=== PATIENT | male | born 1955 | race Caucasian/White ===

== ENCOUNTER → 2020-06-21 | Outpatient (CLI) | payer BC ==
[~2020-06-21] MED LIST: BUPR150T11 PO; glaucoma drop
== END ==
LOC: LAB 10:00
PROVIDERS: ATTEND Nurse Anesthetist, Certified Registered
DX: Z01.812 Encounter for preprocedural laboratory examination (principal); K64.8 Other hemorrhoids; Z20.822 Contact with and (suspected) exposure to COVID-19
CPT/HCPCS: U0003

== ENCOUNTER → 2020-06-25 | Day surgery (SDC) | payer BC ==
[~2020-06-25] MED LIST changes: +ACETAMINOPHEN 500 MG TABLET PO ONE; +BUPIVACAINE-EPI 0.25%-1:200000 MPF 30 ML VIAL. ONE; +DEXAMETHASONE SOD PHOS 4 MG/ML VIAL. ONE; +FAMOTIDINE 20 MG/2 ML VIAL ONE; +IPRATRPIUM/ALBUTEROL 0.5/2.5MG 3 ML NEBU. NEB PRN; +IV RINGERS SOLUTION,LACTATED 1,000 ML IV SCH; +LIDOCAINE 2% PF 5 ML VIAL. ONE; +MIDAZOLAM HCL PF 2 MG/2 ML VIAL. IV ONE; +NEOMY/BACITR/POLYMYXIN OINT PACKET. TP ONE; +ONDANSETRON PF 4 MG/2 ML VIAL. IV PRN; +ONDANSETRON PF 4 MG/2 ML VIAL. ONE; +PROPOFOL 10,000 MCG/ML (20ML) VIAL IV ONE; +ceFAZolin SODIUM 2 GM in IV DEXTROSE 5% 50 ML IV ONE
--- NOTE | 2020-06-25 12:27 | PDOC4 ---
Operative Report DATE June 252020 at 1224 Preop Diagnosis Internal/external hemorrhoids Post-op Diagnosis Same Operation Performed Hemorrhoidectomy internal and external hemorrhoids. Patient is a 64-year-old gentleman with complaint of rectal bleeding he had a colonoscopy about 2 years ago which was normal other than internal hemorrhoids. He also has a large external hemorrhoid that is been bothering him. Procedure of hemorrhoidectomy was explained to the patient in detail risk-benefit were also discussed including bleeding infection alternatives to this procedure also discussed with the patient who seemed to understand and gave both verbal and written consent to have the procedure performed. Patient was taken to the operating room placed the supine position general anesthesia was initiated once patient was sleeping abated placed in low lithotomy positioning. His perineum was prepped and draped usual sterile fashion was Betadine scrub and solution. Area around the external and internal hemorrhoids were injected with quarter percent Marcaine with epinephrine the external hemorrhoid was grasped with Allis clamp and excised with harmonic scalpel. This was at the 12 o'clock position. At the 6 o'clock position was the internal hemorrhoids these were also grasped with the Allis clamp and excised with the harmonic scalpel. Wound was then dressed with antibiotic ointment ABD and mesh pants. Patient was awakened and extubated operating room taken to recovery in stable condition all sponge instrument needle counts listed as correct estimated blood loss 10 mL Surgeon Madhu ANESTHESIA PROPOSED: GENERAL Blood Loss 10 mL Specimen Internal/external hemorrhoids Complications None WONG ANSARI MD Jun 25, 2020 12:27
--- NOTE | 2020-06-25 12:29 | DISCH ---
DISCHARGE INSTRUCTIONS-DC Condition on Discharge Condition on Discharge: Stable Activity after Discharge Activity Instructions for Disc: Avoid exertion Diet after Discharge Diet after Discharge: Regular Wound/Incision Care Other wound/incision instructi: Saskia shower in 24 hours Contacting the DRCalvin after DC Call your doctor for: If your condition worsens Follow-Up Follow up with: Dr. Ansari in 2 weeks WONG ANSARI MD Jun 25, 2020 12:29
[2020-06-25 12:56] VITALS: BP 156/99
--- NOTE | 2020-06-28 18:07 | PATHOLOGY ---
[facility] Accession Number: [id number] . 01 Material submitted: . hemorrhoids - EXTERNAL AND INTERNAL HEMORROID. Modifiers: external, INTERNAL . 01 Clinical history: . HEMORRHOIDECTOMY . 02 Diagnosis: Segments of skin and anorectal mucosa and submucosal tissue, hemorrhoidectomy: - Hemorrhoids. - Chronic inflammation of anal skin. (JPM:fine patcher; 06/28/2020) R 06/28/2020 1604 Local . 02 Comment: There is no evidence of malignancy. (JPM:merelne; 06/28/2020) . 02 Electronically signed: . John Bello MD, Pathologist NPI- [id number] . 01 Gross description: . The specimen is received in formalin, labeled "Benjamin Julio César, external and internal hemorrhoids". Received are two segments of epithelial covered tissue measuring 2.2 x 0.9 x 0.5 and 2.8 x 1.3 x 0.7 cm in greatest dimensions. Sectioning reveals mckeon-gamez to moderately hemorrhagic cut surfaces. The specimen is submitted representatively in cassette A1. (CAA; 06/27/2020) QA/QA 06/27/2020 1843 Local . 02 Pathologist provided ICD-10: K64.9, K62.89 . 02 CPT . 428305 Specimen Comment: A courtesy copy of this report has been sent to [phone] Specimen Comment: Report sent to Performed at: 01 [facility] [address], [place] [id number] MD Cesar William MD Phone: [phone] Performed at: 02 [facility] [address] [place], [place] [id number] MD John Bello MD Phone: [phone]
== END | disposition home or self-care (01) ==
LOC: SURG 10:24
PROVIDERS: ATTEND Surgery
DX: K64.8 Other hemorrhoids (principal); K62.89 Other specified diseases of anus and rectum; K64.4 Residual hemorrhoidal skin tags; Z91.041 Radiographic dye allergy status; Z91.013 Allergy to seafood; Z79.899 Other long term (current) drug therapy
CPT/HCPCS: 46255; J0696; J1100; J2001; J2405; J2704; J3010; J3490; J7120

== ENCOUNTER 2020-11-04 06:54 | Emergency (ER) | payer BC ==
[~2020-11-04] VITALS: Ht 182.9 cm; Wt 84.0 kg
[~2020-11-04 06:54] MED LIST changes: -ACETAMINOPHEN 500 MG TABLET PO ONE; -BUPIVACAINE-EPI 0.25%-1:200000 MPF 30 ML VIAL. ONE; -DEXAMETHASONE SOD PHOS 4 MG/ML VIAL. ONE; -FAMOTIDINE 20 MG/2 ML VIAL ONE; -IPRATRPIUM/ALBUTEROL 0.5/2.5MG 3 ML NEBU. NEB PRN; -IV RINGERS SOLUTION,LACTATED 1,000 ML IV SCH; -LIDOCAINE 2% PF 5 ML VIAL. ONE; -MIDAZOLAM HCL PF 2 MG/2 ML VIAL. IV ONE; -NEOMY/BACITR/POLYMYXIN OINT PACKET. TP ONE; -ONDANSETRON PF 4 MG/2 ML VIAL. IV PRN; -ONDANSETRON PF 4 MG/2 ML VIAL. ONE; -PROPOFOL 10,000 MCG/ML (20ML) VIAL IV ONE; -ceFAZolin SODIUM 2 GM in IV DEXTROSE 5% 50 ML IV ONE
--- NOTE | 2020-11-04 07:58 | PHYS DOC ---
Past History Past Medical History: Kidney Stones Past Medical History Prostate cancer, kidney stones Past Surgical History Prostatectomy Additional Smoking Information: Cigars Alcohol Use: None General Adult EDM: Chief Complaint: ABDOMINAL PAIN HPI: HPI: Patient is a 65 year old male with past medical history of prostate cancer s/p prostatectomy, and kidney stones who presents with right-sided flank and groin pain. Pain initially started on Wednesday, and had a 1 hour episode that had resolved until this morning. Pain started again at 5 AM. Associated with naus ea dry heaving. He took 2.5 mg of hydrocodone at home and pain is now improving. Pain started in the right lower quadrant/groin, but now is more centered in the right flank. It is sharp. Comes in waves. Feels similar to his previous kidney stone episodes. Has had an episode of darker urine, but has not noted wilfred blood. No dysuria, fever, or chills. Review of Systems: Review of Systems: Constitutional: Denies fever or chills Eyes: Denies change in visual acuity HENT: Denies nasal congestion or sore throat Respiratory: Denies cough or shortness of breath Cardiovascular: Denies chest pain or edema GI: + RLQ pain, nausea, vomiting. no bloody stools or diarrhea : + Right flank pain. Denies dysuria Musculoskeletal: Denies back pain or joint pain Integument: Denies rash Neurologic: Denies headache, focal weakness or sensory changes Endocrine: Denies polyuria or polydipsia Lymphatic: Denies swollen glands Psychiatric: Denies depression or anxiety Family History: Family History: No pertinent family history Allergies: Allergies: Allergies Coded Allergies Type Severity Reaction Last Updated Verified Iodinated Contrast Media Allergy Intermediate agitation 06/25/20 Yes shellfish derived Allergy Unknown 06/25/20 Yes Physical Exam: PE: Constitutional: Appears uncomfortable, but not in distress. [] HENT: Normocephalic, atraumatic, bilateral external ears normal, oropharynx moist, no oral exudates, nose normal. [] Eyes: PERRLA, EOMI, conjunctiva normal, no discharge. [] Neck: Normal range of motion, no tenderness, supple, no stridor. [] Cardiovascular:Heart rate regular rhythm, no murmur [] Lungs & Thorax: Bilateral breath sounds clear to auscultation [] Abdomen: + Mild right lower quadrant tenderness to palpation. Bowel sounds normal, soft, no masses, no pulsatile masses. [] Skin: Warm, dry, no erythema, no rash. [] Back: No tenderness, no CVA tenderness. [] Extremities: No tenderness, no cyanosis, no clubbing, ROM intact, no edema. [] Neurologic: Alert and oriented X 3, normal motor function, normal sensory function, no focal deficits noted. [] Psychologic: Affect normal, judgement normal, mood normal. [] Current Patient Data: Vital Signs: Vital Signs Date Time Temp Pulse Resp B/P (MAP) Pulse Ox O2 Delivery O2 Flow Rate FiO2 11/04/20 07:01 98.0 68 16 156/93 99 Room Air EKG: EKG: [] Radiology/Procedures: Radiology/Procedures: [][address] [id number] IMAGING REPORT Signed PATIENT: ONI FONTANEZ ACCOUNT: [id number] : 1955 LOCATION: ER AGE: 65 SEX: M EXAM STATUS: REG ER ORD. PHYSICIAN: ROD CONTRERAS MD REASON: RLQ pain, R flank pain, hx kidney stones PROCEDURE: CT ABDOMEN PELVIS WO CONTRAST CT ABDOMEN+PELVIS WO INDICATION: RLQ pain, R flank pain, hx kidney stones EXAM: Noncontrast CT of the abdomen and pelvis. Coronal and sagittal reformatted images were performed. PQRS compliance statement: One or more of the following individualized dose reduction techniques were utilized for this examination: 1. Automated exposure control 2. Adjustment of the mA and/or kV according to patient size 3. Use of iterative reconstruction technique COMPARISON: 03/27/2005 FINDINGS: No free air, free fluid, or fluid collection. Lower chest: The visualized lower lungs are aerated. No pleural or pericardial effusion. ABDOMEN: Liver: The noncontrast liver is homogeneous in attenuation. Gallbladder and biliary: Normal gallbladder without radiopaque stone. Normal caliber bile ducts. Spleen: Normal spleen. Pancreas: The noncontrast pancreas is homogeneous in attenuation without peripancreatic inflammatory changes. Adrenal glands: Normal adrenal glands. Kidneys and ureters: Mild right hydroureteronephrosis with a 5 x 4 mm calculus in the proximal ureter. Several nonobstructive left renal calculi measuring up to 4 mm. 2 incompletely characterized left renal hypodensities, largest measuring 1.6 cm. GI tract: The stomach is decompressed and poorly evaluated. Normal caliber small bowel and colon. Normal appendix. Vascular structures: Normal caliber abdominal aorta. Mild aortoiliac atherosclerotic disease. Lymph nodes: No lymphadenopathy in the abdomen or pelvis. PELVIS: Genitourinary system: Normal bladder. SKELETAL STRUCTURES AND SOFT TISSUES: 9 mm anterolisthesis at L5-S1 due to bilateral L5 pars defects. Degenerative changes of the spine. IMPRESSION: 1. Mild right hydroureteronephrosis with a 5 x 4 mm calculus in the proximal ureter. 2. Several nonobstructive left renal calculi measuring up to 4 mm. 3. Two left renal hypodensities measuring up to 1.6 cm, incompletely characterized but possibly cysts. Consider renal ultrasound for better evalua tion. Electronically signed by: Hilton Peña MD (11/04/2020 9:39 AM) [id number] DICTATED AND SIGNED BY: HILTON PEÑA MD DATE: 11/04/2033 CC: ROD CONTRERAS MD; MIKE DUKES ~MTH0 0 Heart Score: C/O Chest Pain: N/A Risk Factors: Risk Factors: DM, Current or recent (<one month) smoker, HTN, HLP, family history of CAD, obesity. Risk Scores: Score 0 - 3: 2.5% MACE over next 6 weeks - Discharge Home Score 4 - 6: 20.3% MACE over next 6 weeks - Admit for Clinical Observation Score 7 - 10: 72.7% MACE over next 6 weeks - Early Invasive Strategies Course & Med Decision Making: Course & Med Decision Making Pertinent Labs and Imaging studies reviewed. (See chart for details) Patient is a 65-year-old man with history of previous episodes of kidney stones, prostate cancer s/p prostatectomy who presents with right groin pain radiating to his right flank. Reminiscent of previous kidney stone pain. On arrival is afebrile, hemodynamically stable. Appears uncomfortable, but not in distress on examination. History is certainly concerning for recurrent kidney stones, but also consider other intra-abdominal process such as appendicitis. Will check labs including CBC, CMP, UA. Will treat with Tylenol and ketorolac. If labs and urine are consistent with kidney stone, we may defer imaging. If there is some diagnostic uncertainty, may pursue CT abdomen/pelvis for further investigation. 0758 UA with large amount of red blood cells consistent with kidney stone. No evidence of infected kidney stone by urine, but white count was slightly elevated. Creatinine was okay. We did end up getting a CT scan which showed hydroureter on the right concerning for a passed kidney stone. He is feeling much improved at this time. Feel that he is safe for discharge with urology follow-up. He does have urology follow-up already due to his history of prostate cancer. Return precautions discussed. 1006 Dragon Disclaimer: Dragon Disclaimer: This electronic medical record was generated, in whole or in part, using a voice recognition dictation system. Departure Departure: Impression: Primary Impression: Right kidney stone Disposition: HOME / SELF CARE / HOMELESS Condition: STABLE Referrals: MIKE DUKES (PCP) Please follow-up with your PCP Patient Instructions: Kidney Stones Additional Instructions: Please schedule follow-up appointment with your urologist. ROD CONTRERAS MD Nov 04, 2020 07:58
[2020-11-04] MEDS ORDERED: KETOROLAC 15 MG/ML VIAL. IVP ONE (08:00)
[2020-11-04] MEDS ORDERED: ACETAMINOPHEN 500 MG TABLET PO ONE (08:00)
[2020-11-04 08:11] LABS: BASO # 0.1 x10^3/uL (0.0-0.2); BASO % 1 % (0-3); EOS # 0.1 x10^3/uL (0.0-0.7); EOS % 1 % (0-3); HEMATOCRIT 47.4 % (39.0-53.0); LYMPH # 1.7 x10^3/uL (1.0-4.8); LYMPH % 15 % (24-48); MEAN CORPUSCULAR HEMOGLOBIN 32 pg (25-35); MEAN CORPUSCULAR HGB CONC 34 g/dL (31-37); MEAN CORPUSCULAR VOLUME 96 fL (79-100); MONO # 0.8 x10^3/uL (0.0-1.1); MONO % 7 % (0-9); NEUT % 78 % (31-73); PLATELET COUNT 206 x10^3/uL (140-400); RED BLOOD COUNT 4.93 x10^6/uL (4.30-5.70); WHITE BLOOD COUNT 11.7 x10^3/uL (4.0-11.0)
[2020-11-04 08:15] LABS: CALCIUM 8.8 mg/dL (8.5-10.1); CREATININE 1.3 mg/dL (0.7-1.3); GFR 55.2; POTASSIUM 3.5 mmol/L (3.5-5.1)
[2020-11-04 08:22] LABS: ALBUMIN/GLOBULIN RATIO 1.4 (1.0-1.7); TOTAL BILIRUBIN 0.5 mg/dL (0.2-1.0); TOTAL PROTEIN 6.9 g/dL (6.4-8.2)
[2020-11-04 09:38] LABS: BILIRUBIN,URINE NEG (NEG); CLARITY,URINE CLEAR; COLOR,URINE YELLOW; GLUCOSE,URINE NEG (NEG); NITRITE,URINE NEG (NEG); UROBILINOGEN,URINE 0.2 mg/dL (0.2 mg/dL)
[2020-11-04 09:39] LABS: BACTERIA,URINE 0 /HPF (0-FEW); RBC,URINE 20-40 /HPF (0-2); WBC,URINE 0 /HPF (0-4)
--- NOTE | 2020-11-04 09:42 | RAD ---
CT ABDOMEN+PELVIS WO INDICATION: RLQ pain, R flank pain, hx kidney stones EXAM: Noncontrast CT of the abdomen and pelvis. Coronal and sagittal reformatted images were perform ed. PQRS compliance statement: One or more of the following individualized dose reduction techniques were utilized for this examinat ion: 1. Automated exposure control 2. Adjustment of the mA and/or kV according to patient size 3. Use of iterative reconstruction technique COMPARISON: 03/27/2005 FINDINGS: No free air, free fluid, or fluid collection. Lower chest: The visualized lower lungs are aerated. No pleural or pericardial effusion. ABDOMEN: Liver: The noncontrast liver is homogeneous in attenuation. Gallbladder and biliary: Normal gallbladder without radiopaque stone. Normal caliber bile ducts. Spleen: Normal spleen. Pancreas: The noncontrast pancreas is homogeneous in attenuation without peripancreatic inflammatory changes. Adrenal glands: Normal adrenal glands. Kidneys and ureters: Mild right hydroureteronephrosis with a 5 x 4 mm calculus in the proximal ureter . Several nonobstructive left renal calculi measuring up to 4 mm. 2 incompletely characterized left r enal hypodensities, largest measuring 1.6 cm. GI tract: The stomach is decompressed and poorly evaluated. Normal caliber small bowel and colon. Nor mal appendix. Vascular structures: Normal caliber abdominal aorta. Mild aortoiliac atherosclerotic disease. Lymph nodes: No lymphadenopathy in the abdomen or pelvis. PELVIS: Genitourinary system: Normal bladder. SKELETAL STRUCTURES AND SOFT TISSUES: 9 mm anterolisthesis at L5-S1 due to bilateral L5 pars defects. Degenerative changes of the spine. IMPRESSION: 1. Mild right hydroureteronephrosis with a 5 x 4 mm calculus in the proximal ureter. 2. Several nonobstructive left renal calculi measuring up to 4 mm. 3. Two left renal hypodensities measuring up to 1.6 cm, incompletely characterized but possibly cysts . Consider renal ultrasound for better evaluation. Electronically signed by: Malik Peña MD (11/04/2020 9:39 AM) [id number]
[2020-11-04 10:20] VITALS: BP 134/75
== END 2020-11-04 10:20 | disposition home or self-care (01) ==
LOC: ER 06:54
DX: N13.2 Hydronephrosis with renal and ureteral calculous obstruction (principal); F17.210 Nicotine dependence, cigarettes, uncomplicated; Z87.442 Personal history of urinary calculi; Z91.040 Latex allergy status; Z91.013 Allergy to seafood
CPT/HCPCS: 36415; 74176; 80053; 81001; 85025; 96374; 99284; J1885